=== PATIENT | male | born 1985 | race Two or more races ===

== ENCOUNTER 2019-06-09 10:13 | Emergency (ER) | payer MEDICAID ==
[~2019-06-09] VITALS: Ht 180.3 cm; Wt 78.3 kg
[2019-06-09 10:38] VITALS: BP 128/86
[2019-06-09] MEDS ORDERED: ONDANSETRON ODT 4 MG ONE (10:52)
--- NOTE | 2019-06-09 10:56 | NUR ---
PT AMBULATORY TO ROOM 9 W/ C/O BILAT EAR PAIN, SORE THROAT, NAUSEA AND GENERAL MALAISE X "A FEW DAYS". PT STATES OVERALLY HEALTHY W/ NO MEDICAL PROBLEMS. DENIES V/D. PT RESTING ON [facility]. DARIO.
[2019-06-09] MEDS ORDERED: ONDANSETRON ODT 4 MG PO ONE (11:00)
== END 2019-06-09 12:19 | disposition home or self-care (01) ==
LOC: ED 10:47
DX: H66.001 Acute suppurative otitis media without spontaneous rupture of ear drum, right ear (principal); J02.9 Acute pharyngitis, unspecified; R11.0 Nausea; F17.200 Nicotine dependence, unspecified, uncomplicated
CPT/HCPCS: 87081; 87880; 99283; Q0162